=== PATIENT | female | born 1940 | race Caucasian/White ===

== ENCOUNTER → 2016-09-19 | Outpatient (CLI) | payer MEDICARE, BC ==
[~2016-09-19] MED LIST: ADVIL200 MG PO; ANTIBIOTIC O500 U/GM TP; BYSTOLIC5 MG PO; DUO-KAPS1 CAP PO; EPA FISH OIL1000 MG PO; LIPITOR20 MG PO; RECLAST5 MG/100 M IV; RITE AID ASPIRI81 M1 PO; SYNTHROID0.05 MG/TA PO; TUMORIC PO; VIT-GEN1 TAB PO; VITAMIN D 1001000 IU PO; VITAMIN E1000 U/CAP PO
== END ==
LOC: LAB 09:23
DX: I97.3 Postprocedural hypertension (principal); E78.2 Mixed hyperlipidemia; E03.4 Atrophy of thyroid (acquired)

== ENCOUNTER → 2017-04-19 | Outpatient (CLI) | payer MEDICARE, BC ==
[2015-03-05 10:11] VITALS: BP 136/72
== END ==
LOC: LAB 07:49
DX: I97.3 Postprocedural hypertension (principal); E78.2 Mixed hyperlipidemia; E03.4 Atrophy of thyroid (acquired); Z12.11 Encounter for screening for malignant neoplasm of colon; M80.08XS Age-related osteoporosis with current pathological fracture, vertebra(e), sequela

== ENCOUNTER → 2017-05-02 | Outpatient (CLI) | payer MEDICARE, BC ==
[2015-03-05 10:11] VITALS: BP 136/72
== END ==
LOC: LAB 09:07
DX: M80.08XS Age-related osteoporosis with current pathological fracture, vertebra(e), sequela (principal)

== ENCOUNTER → 2017-05-09 | Outpatient (CLI) | payer MEDICARE, BC ==
[2015-03-05 10:11] VITALS: BP 136/72
== END ==
LOC: RAD 11:01
DX: I65.29 Occlusion and stenosis of unspecified carotid artery (principal); I65.21 Occlusion and stenosis of right carotid artery

== ENCOUNTER → 2017-05-09 | Outpatient (CLI) | payer MEDICARE, BC ==
[2015-03-05 10:11] VITALS: BP 136/72
== END ==
LOC: MAMMO 10:38
DX: Z12.31 Encounter for screening mammogram for malignant neoplasm of breast (principal)
CPT/HCPCS: G0202

== ENCOUNTER → 2017-12-04 | Outpatient (CLI) | payer MEDICARE, BC ==
[2015-03-05 10:11] VITALS: BP 136/72
[2017-12-04 14:48] LABS: EOS # 0.1 (0.04-0.40); EOS % 3.1 % (1.0-5.0); HEMATOCRIT 36.7 % (37.0-47.0); LYMPH# 1.3 (1.50-4.00); MEAN CELL VOLUME 99 fl (78-100); MEAN CORPUSCULAR HEMOGLOBIN 32 pg (27-31); MEAN CORPUSCULAR HGB CONC 33 g/dL (33-37); MEAN PLATELET VOLUME 9.3 fl (7.4-10.4); MONO # 0.5 (0.20-0.80); NEU # 2.5 (1.40-6.50); PLATELET COUNT 282 K/mm3 (130-400); RED CELL DISTRIBUTION WIDTH 13.3 % (11.5-14.5); WHITE BLOOD COUNT 4.5 K/mm3 (4.8-10.8)
[2017-12-04 14:55] LABS: ALBUMIN 3.8 g/dL (3.5-5.0); BUN/CREATININE RATIO 19.4 (6.0-26.0); CALCIUM 9.8 mg/dL (8.4-10.2); POTASSIUM 4.2 mmol/L (3.6-5.0); TOTAL BILIRUBIN 0.2 mg/dL (0.2-1.3); TOTAL PROTEIN 7.2 g/dL (6.3-8.2)
== END ==
LOC: LAB 13:49
PROVIDERS: Internal Medicine
DX: E78.5 Hyperlipidemia, unspecified (principal); I10 Essential (primary) hypertension; E03.9 Hypothyroidism, unspecified; Z88.1 Allergy status to other antibiotic agents

== ENCOUNTER → 2018-05-22 | Outpatient (CLI) | payer MEDICARE, BC ==
[~2018-05-22] VITALS: Ht 154.9 cm; Wt 72.7 kg
[2018-05-22 14:20] VITALS: BP 145/75
[2018-05-22 14:22] LABS: HEMATOCRIT 36.8 % (37.0-47.0); HEMOGLOBIN 12.5 g/dL (12.5-16.0); MEAN CELL VOLUME 97 fl (78-100); MEAN CORPUSCULAR HEMOGLOBIN 33 pg (27-31); MEAN CORPUSCULAR HGB CONC 34 g/dL (33-37); MEAN PLATELET VOLUME 8.9 fl (7.4-10.4); PLATELET COUNT 230 K/mm3 (130-400); RED BLOOD COUNT 3.79 M/mm3 (4.10-5.30); RED CELL DISTRIBUTION WIDTH 13.6 % (11.5-14.5); WHITE BLOOD COUNT 3.9 K/mm3 (4.8-10.8)
[2018-05-22 14:35] LABS: CALCIUM 9.8 mg/dL (8.4-10.2); TOTAL BILIRUBIN 0.8 mg/dL (0.2-1.3)
[2018-05-22 16:00] LABS: ERYTHROCYTE SEDIMENTATION RATE 11 mm/hr (0-30); LYMPHOCYTE 43 % (20-51); MONOCYTE 7 % (3-10); NEUTROPHILS 45 % (42-75)
== END ==
LOC: AMSURD 13:48 → RAD 15:15 → AMSURD 15:15 → MAMMO 15:15
PROVIDERS: Internal Medicine
DX: Z13.820 Encounter for screening for osteoporosis (principal); M85.88 Other specified disorders of bone density and structure, other site; I65.23 Occlusion and stenosis of bilateral carotid arteries; I49.3 Ventricular premature depolarization; I10 Essential (primary) hypertension; R20.2 Paresthesia of skin; M81.0 Age-related osteoporosis without current pathological fracture; E03.9 Hypothyroidism, unspecified

== ENCOUNTER → 2018-05-22 | Outpatient (CLI) | payer MEDICARE, BC ==
[2015-03-05 10:11] VITALS: BP 136/72
== END ==
LOC: MAMMO 13:53
DX: Z12.31 Encounter for screening mammogram for malignant neoplasm of breast (principal)

== ENCOUNTER → 2018-12-28 | Outpatient (CLI) | payer MEDICARE, BC ==
[2018-05-22 14:20] VITALS: BP 145/75
== END ==
LOC: LAB 07:04
DX: E03.9 Hypothyroidism, unspecified (principal)

== ENCOUNTER → 2019-05-23 | Outpatient (CLI) | payer MEDICARE, BC ==
[2018-05-22 14:20] VITALS: BP 145/75
== END ==
LOC: MAMMO 07:40
DX: Z12.31 Encounter for screening mammogram for malignant neoplasm of breast (principal)

== ENCOUNTER → 2019-05-23 | Outpatient (CLI) | payer MEDICARE, BC ==
[~2019-05-23] VITALS: Ht 154.9 cm; Wt 72.7 kg
[2019-05-23 08:21] LABS: HEMATOCRIT 38.3 % (37.0-47.0); HEMOGLOBIN 12.5 g/dL (12.5-16.0); MEAN CELL VOLUME 100 fl (78-100); MEAN CORPUSCULAR HEMOGLOBIN 33 pg (27-31); MEAN CORPUSCULAR HGB CONC 33 g/dL (33-37); MEAN PLATELET VOLUME 9.5 fl (7.4-10.4); PLATELET COUNT 227 K/mm3 (130-400); RED BLOOD COUNT 3.85 M/mm3 (4.10-5.30); RED CELL DISTRIBUTION WIDTH 13.6 % (11.5-14.5); WHITE BLOOD COUNT 3.5 K/mm3 (4.8-10.8)
[2019-05-23 08:29] LABS: ALBUMIN 3.7 g/dL (3.4-4.8)
[2019-05-23 08:30] LABS: CALCIUM 9.8 mg/dL (8.3-10.5)
[2019-05-23 08:31] LABS: TOTAL PROTEIN 6.6 g/dL (6.2-8.1)
[2019-05-23 08:33] LABS: TOTAL BILIRUBIN 0.4 mg/dL (0.2-1.2)
[2019-05-23 08:38] LABS: LYMPHOCYTE 37 % (20-51); MONOCYTE 15 % (3-10); NEUTROPHILS 46 % (42-75)
[2019-05-23 08:51] LABS: PH-URINE 6.5 (5.0 - 8.0); URINE APPEARANCE CLEAR; URINE BILIRUBIN NEGATIVE (NEGATIVE); URINE BLOOD NEGATIVE (NEGATIVE); URINE COLOR YELLOW; URINE GLUCOSE NEGATIVE (NEGATIVE); URINE KETONE SMALL (NEGATIVE); URINE LEUKOCYTE ESTERASE 2+ (NEGATIVE); URINE MUCUS PRESENT (NOT PRESENT); URINE NITRATE NEGATIVE (NEGATIVE); URINE PROTEIN(semi-quant) 1+ mg/dL (NEGATIVE); URINE UROBILINOGEN NORMAL (NORMAL)
[2019-05-23 09:00] VITALS: BP 159/72
[2019-05-23 09:34] LABS: ERYTHROCYTE SEDIMENTATION RATE 11 mm/hr (0-30)
== END ==
LOC: RAD 07:40
PROVIDERS: Internal Medicine
DX: I65.21 Occlusion and stenosis of right carotid artery (principal); I49.3 Ventricular premature depolarization

== ENCOUNTER → 2019-10-14 | Outpatient (CLI) | payer MEDICARE, BC ==
[2019-05-23 09:00] VITALS: BP 159/72
== END ==
LOC: RAD 14:37
DX: I65.21 Occlusion and stenosis of right carotid artery (principal)

== ENCOUNTER → 2019-10-31 | Outpatient (CLI) | payer MEDICARE, BC ==
[2019-05-23 09:00] VITALS: BP 159/72
== END ==
LOC: LAB 14:23
DX: L03.115 Cellulitis of right lower limb (principal)

== ENCOUNTER → 2019-12-27 | Outpatient (CLI) | payer MEDICARE, BC ==
[2019-05-23 09:00] VITALS: BP 159/72
== END ==
LOC: RAD 11:41
DX: M48.54XA Collapsed vertebra, not elsewhere classified, thoracic region, initial encounter for fracture (principal); M48.56XA Collapsed vertebra, not elsewhere classified, lumbar region, initial encounter for fracture; M47.814 Spondylosis without myelopathy or radiculopathy, thoracic region; M47.816 Spondylosis without myelopathy or radiculopathy, lumbar region; M43.8X4 Other specified deforming dorsopathies, thoracic region; M81.0 Age-related osteoporosis without current pathological fracture; Z98.890 Other specified postprocedural states

== ENCOUNTER → 2020-05-28 | Outpatient (CLI) | payer MEDICARE, BC ==
[2019-05-23 09:00] VITALS: BP 159/72
[2020-05-28 09:33] LABS: HEMATOCRIT 38.6 % (37.0-47.0); HEMOGLOBIN 12.7 g/dL (12.5-16.0); MEAN CELL VOLUME 98 fl (78-100); MEAN CORPUSCULAR HEMOGLOBIN 32 pg (27-31); MEAN CORPUSCULAR HGB CONC 33 g/dL (33-37); MEAN PLATELET VOLUME 9.1 fl (7.4-10.4); PLATELET COUNT 195 K/mm3 (130-400); RED BLOOD COUNT 3.95 M/mm3 (4.10-5.30); RED CELL DISTRIBUTION WIDTH 13.7 % (11.5-14.5); WHITE BLOOD COUNT 3.2 K/mm3 (4.8-10.8)
[2020-05-28 09:37] LABS: ALBUMIN 3.9 g/dL (3.4-4.8); POTASSIUM 3.9 mmol/L (3.5-5.1)
[2020-05-28 09:38] LABS: CALCIUM 9.5 mg/dL (8.3-10.5)
[2020-05-28 09:41] LABS: TOTAL BILIRUBIN 0.6 mg/dL (0.2-1.2)
[2020-05-28 10:10] LABS: PH-URINE 6.5 (5.0 - 8.0); URINE APPEARANCE HAZY; URINE BILIRUBIN NEGATIVE (NEGATIVE); URINE BLOOD NEGATIVE (NEGATIVE); URINE COLOR YELLOW; URINE GLUCOSE NEGATIVE (NEGATIVE); URINE KETONE NEGATIVE (NEGATIVE); URINE LEUKOCYTE ESTERASE TRACE (NEGATIVE); URINE NITRATE NEGATIVE (NEGATIVE); URINE PROTEIN(semi-quant) 1+ mg/dL (NEGATIVE); URINE UROBILINOGEN NORMAL (NORMAL)
[2020-05-28 10:14] LABS: LYMPHOCYTE 33 % (20-51); MONOCYTE 10 % (3-10); NEUTROPHILS 49 % (42-75)
[2020-05-28 11:06] LABS: ERYTHROCYTE SEDIMENTATION RATE 13 mm/hr (0-30)
== END ==
LOC: LAB 09:11 → RAD 09:11
PROVIDERS: Internal Medicine
DX: Z13.820 Encounter for screening for osteoporosis (principal); M85.852 Other specified disorders of bone density and structure, left thigh; I97.3 Postprocedural hypertension; I65.29 Occlusion and stenosis of unspecified carotid artery; E03.9 Hypothyroidism, unspecified; M80.08XS Age-related osteoporosis with current pathological fracture, vertebra(e), sequela; R20.2 Paresthesia of skin

== ENCOUNTER → 2020-05-28 | Outpatient (CLI) | payer MEDICARE, BC ==
[2019-05-23 09:00] VITALS: BP 159/72
== END ==
LOC: MAMMO 05-26 11:30
DX: Z12.31 Encounter for screening mammogram for malignant neoplasm of breast (principal)

== ENCOUNTER 2020-08-28 09:04 | Outpatient (RCR) | payer MEDICARE, BC ==
[2019-05-23 09:00] VITALS: BP 159/72
== END 2020-11-26 | disposition home or self-care (01) ==
LOC: PT
DX: M76.32 Iliotibial band syndrome, left leg (principal)

== ENCOUNTER 2021-04-19 17:04 | Emergency (ER) | payer MEDICARE, BC ==
[2021-04-19 17:32] LABS: BASO # 0.03 (0.02-0.10); EOS # 0.13 (0.04-0.40); EOS % 3.3 % (1.0-5.0); HEMATOCRIT 38.2 % (37.0-47.0); HEMOGLOBIN 12.6 g/dL (12.5-16.0); LYMPH# 1.19 (1.50-4.00); MEAN CELL VOLUME 99 fl (78-100); MEAN CORPUSCULAR HEMOGLOBIN 33 pg (27-31); MEAN CORPUSCULAR HGB CONC 33 g/dL (33-37); MEAN PLATELET VOLUME 8.8 fl (7.4-10.4); MONO # 0.63 (0.20-0.80); NEU # 1.93 (1.40-6.50); PLATELET COUNT 232 K/mm3 (130-400); RED BLOOD COUNT 3.85 M/mm3 (4.10-5.30); RED CELL DISTRIBUTION WIDTH 13.7 % (11.5-14.5); WHITE BLOOD COUNT 3.9 K/mm3 (4.8-10.8)
[2021-04-19 17:45] LABS: ALBUMIN 3.8 g/dL (3.4-4.8)
[2021-04-19 17:46] LABS: POTASSIUM 4.1 mmol/L (3.5-5.1)
[2021-04-19 17:47] LABS: CALCIUM 10.4 mg/dL (8.3-10.5)
[2021-04-19 17:50] LABS: TOTAL BILIRUBIN 0.4 mg/dL (0.2-1.2)
[2021-04-19 18:01] LABS: TROPONIN-I 0.03 ng/mL (<0.030)
[2021-04-19 19:07] LABS: PH-URINE 7.5 (5.0 - 8.0); URINE APPEARANCE CLEAR; URINE BILIRUBIN NEGATIVE (NEGATIVE); URINE BLOOD NEGATIVE (NEGATIVE); URINE COLOR YELLOW; URINE GLUCOSE NEGATIVE (NEGATIVE); URINE KETONE NEGATIVE (NEGATIVE); URINE LEUKOCYTE ESTERASE TRACE (NEGATIVE); URINE NITRATE NEGATIVE (NEGATIVE); URINE PROTEIN(semi-quant) TRACE mg/dL (NEGATIVE); URINE UROBILINOGEN NORMAL (NORMAL)
[2021-04-19 19:20] VITALS: BP 176/87
== END 2021-04-19 19:30 | disposition home or self-care (01) ==
LOC: ED 17:04
PROVIDERS: Nurse Practitioner
DX: R53.81 Other malaise (principal); R53.83 Other fatigue; I10 Essential (primary) hypertension; E66.9 Obesity, unspecified; Z20.822 Contact with and (suspected) exposure to COVID-19

== ENCOUNTER → 2021-04-23 | Outpatient (CLI) | payer MEDICARE, BC ==
[2021-04-23 08:34] LABS: BASO # 0.03 (0.02-0.10); EOS # 0.26 (0.04-0.40); LYMPH# 1.25 (1.50-4.00); MEAN CELL VOLUME 100 fl (78-100); MEAN CORPUSCULAR HEMOGLOBIN 32 pg (27-31); MEAN CORPUSCULAR HGB CONC 32 g/dL (33-37); MEAN PLATELET VOLUME 8.8 fl (7.4-10.4); MONO # 0.71 (0.20-0.80); NEU # 2.11 (1.40-6.50); PLATELET COUNT 237 K/mm3 (130-400); RED BLOOD COUNT 3.71 M/mm3 (4.10-5.30); RED CELL DISTRIBUTION WIDTH 13.8 % (11.5-14.5); WHITE BLOOD COUNT 4.4 K/mm3 (4.8-10.8)
[2021-04-23 08:53] LABS: ALBUMIN 3.6 g/dL (3.4-4.8); POTASSIUM 3.9 mmol/L (3.5-5.1)
[2021-04-23 08:54] LABS: CALCIUM 10.1 mg/dL (8.3-10.5)
[2021-04-23 08:56] LABS: TOTAL PROTEIN 6.6 g/dL (6.2-8.1)
[2021-04-23 08:57] LABS: TOTAL BILIRUBIN 0.5 mg/dL (0.2-1.2)
[2021-04-23 10:31] LABS: D-DIMER 0.92 mg/L FEU (0.15-0.50)
[2021-04-23 10:32] LABS: ERYTHROCYTE SEDIMENTATION RATE 17 mm/hr (0-30)
== END ==
LOC: LAB 08:06
PROVIDERS: Internal Medicine
DX: R06.00 Dyspnea, unspecified (principal); R53.83 Other fatigue

== ENCOUNTER → 2021-04-23 | Outpatient (CLI) | payer MEDICARE, BC | LOC: RAD 15:20 | DX: M43.9 Deforming dorsopathy, unspecified (principal) | CPT/HCPCS: Q9967 ==

== ENCOUNTER → 2021-05-06 | Outpatient (CLI) | payer MEDICARE, BC | LOC: VAS 14:48 → RAD 15:00 | DX: R06.00 Dyspnea, unspecified (principal) ==

== ENCOUNTER → 2021-05-07 | Outpatient (CLI) | payer MEDICARE, BC | LOC: CARDREHAB 10:53 | DX: R06.00 Dyspnea, unspecified (principal) | CPT/HCPCS: A9500 ==

== ENCOUNTER → 2021-06-09 | Outpatient (CLI) | payer MEDICARE, BC | LOC: MAMMO 15:04 | DX: Z12.31 Encounter for screening mammogram for malignant neoplasm of breast (principal) ==

== ENCOUNTER → 2021-12-23 | Outpatient (CLI) | payer MEDICARE, BC ==
[2021-12-23 14:46] LABS: BASO # 0.04 K/mm3 (0.02-0.10); EOS # 0.08 K/mm3 (0.04-0.40); EOS % 1.8 % (1.0-5.0); HEMATOCRIT 36.3 % (37.0-47.0); HEMOGLOBIN 11.6 g/dL (12.5-16.0); LYMPH# 1.27 K/mm3 (1.50-4.00); MEAN CELL VOLUME 101 fl (78-100); MEAN CORPUSCULAR HEMOGLOBIN 32 pg (27-31); MEAN CORPUSCULAR HGB CONC 32 g/dL (33-37); MEAN PLATELET VOLUME 8.6 fl (7.4-10.4); MONO # 0.55 K/mm3 (0.20-0.80); NEU # 2.46 K/mm3 (1.40-6.50); PLATELET COUNT 245 K/mm3 (130-400); RED BLOOD COUNT 3.61 M/mm3 (4.10-5.30); RED CELL DISTRIBUTION WIDTH 13.8 % (11.5-14.5); WHITE BLOOD COUNT 4.4 K/mm3 (4.8-10.8)
[2021-12-23 15:00] LABS: ALBUMIN 3.9 g/dL (3.4-4.8); POTASSIUM 4.5 mmol/L (3.5-5.1)
[2021-12-23 15:01] LABS: CALCIUM 10.4 mg/dL (8.3-10.5)
[2021-12-23 15:02] LABS: TOTAL PROTEIN 6.8 g/dL (6.2-8.1)
[2021-12-23 15:04] LABS: TOTAL BILIRUBIN 0.3 mg/dL (0.2-1.2)
[2021-12-23 15:09] LABS: MAGNESIUM 1.74 mg/dL (1.60-2.60)
== END ==
LOC: LAB 14:32
PROVIDERS: Internal Medicine
DX: E03.4 Atrophy of thyroid (acquired) (principal); K90.9 Intestinal malabsorption, unspecified; I10 Essential (primary) hypertension; E78.2 Mixed hyperlipidemia; M81.0 Age-related osteoporosis without current pathological fracture

== ENCOUNTER → 2022-02-01 | Outpatient (CLI) | payer MEDICARE, BC | LOC: LAB 15:37 | DX: K44.9 Diaphragmatic hernia without obstruction or gangrene (principal); M48.55XA Collapsed vertebra, not elsewhere classified, thoracolumbar region, initial encounter for fracture; E03.4 Atrophy of thyroid (acquired); I10 Essential (primary) hypertension; E78.2 Mixed hyperlipidemia; M81.0 Age-related osteoporosis without current pathological fracture; K90.9 Intestinal malabsorption, unspecified ==

== ENCOUNTER → 2022-02-09 | Outpatient (CLI) | payer MEDICARE, BC ==
[~2022-02-09] MED LIST changes: +ADVAIR DISKUS1 DS2 IH; +FUROSEMIDE20 MG PO; +LEVOCETIRIZINE D5 MG PO; +LEVOTHYROXINE0.05 MG PO; +LOSARTAN POTASS50 M1 PO; +SINGULAIR 110 MG/TAB PO
[2022-02-09 14:40] LABS: POTASSIUM 4.5 mmol/L (3.5-5.1)
[2022-02-09 14:42] LABS: TOTAL PROTEIN 6.9 g/dL (6.2-8.1)
[2022-02-09 14:44] LABS: TOTAL BILIRUBIN 0.5 mg/dL (0.2-1.2)
[2022-02-09 14:49] LABS: MAGNESIUM 1.91 mg/dL (1.60-2.60)
== END ==
LOC: RAD 14:09 → LAB 14:09
PROVIDERS: Internal Medicine
DX: M48.55XA Collapsed vertebra, not elsewhere classified, thoracolumbar region, initial encounter for fracture (principal); R06.00 Dyspnea, unspecified

== ENCOUNTER 2022-02-14 13:24 | Emergency (ER) | payer MEDICARE, BC ==
[~2022-02-14] VITALS: Ht 152.4 cm; Wt 72.7 kg
[~2022-02-14 13:24] MED LIST changes: -ADVAIR DISKUS1 DS2 IH; -FUROSEMIDE20 MG PO; -LEVOCETIRIZINE D5 MG PO; -LEVOTHYROXINE0.05 MG PO; -LOSARTAN POTASS50 M1 PO; -SINGULAIR 110 MG/TAB PO
[2022-02-14] MEDS ORDERED: ADVAIR DISKUS1 DS2 IH (14:23)
[2022-02-14] MEDS ORDERED: LEVOCETIRIZINE D5 MG PO (14:23)
[2022-02-14] MEDS ORDERED: SINGULAIR 110 MG/TAB PO (14:23)
[2022-02-14] MEDS ORDERED: FUROSEMIDE20 MG PO (14:24)
[2022-02-14] MEDS ORDERED: LOSARTAN POTASS50 M1 PO (14:24)
[2022-02-14] MEDS ORDERED: LEVOTHYROXINE0.05 MG PO (14:24)
[2022-02-14 15:20] VITALS: BP 122/70
== END 2022-02-14 15:20 | disposition home or self-care (01) ==
LOC: ED 13:24
DX: S51.811A Laceration without foreign body of right forearm, initial encounter (principal); M25.531 Pain in right wrist; Z23 Encounter for immunization; W23.1XXA Caught, crushed, jammed, or pinched between stationary objects, initial encounter; Y93.01 Activity, walking, marching and hiking; Y92.009 Unspecified place in unspecified non-institutional (private) residence as the place of occurrence of the external cause
CPT/HCPCS: 90715

== ENCOUNTER → 2022-03-03 | Outpatient (CLI) | payer MEDICARE, BC ==
[~2022-03-03] MED LIST changes: +ADVAIR DISKUS1 DS2 IH; +FUROSEMIDE20 MG PO; +LEVOCETIRIZINE D5 MG PO; +LEVOTHYROXINE0.05 MG PO; +LOSARTAN POTASS50 M1 PO; +SINGULAIR 110 MG/TAB PO
== END ==
LOC: RAD 08:27
DX: S52.601A Unspecified fracture of lower end of right ulna, initial encounter for closed fracture (principal)

== ENCOUNTER → 2022-03-15 | Outpatient (CLI) | payer MEDICARE, BC ==
[~2022-03-15] VITALS: Ht 152.4 cm; Wt 68.2 kg
[2022-03-15 10:09] VITALS: BP 182/86
== END ==
LOC: AMSURD 09:57
DX: M80.08XA Age-related osteoporosis with current pathological fracture, vertebra(e), initial encounter for fracture (principal)
CPT/HCPCS: J0897

== ENCOUNTER 2022-03-16 14:00 | Outpatient (RCR) | payer MEDICARE, BC | END 2022-03-20 | LOC: PT 14:00 | DX: M62.81 Muscle weakness (generalized) (principal) ==

== ENCOUNTER 2022-03-24 11:47 | Outpatient (RCR) | payer MEDICARE, BC | END 2022-04-20 | disposition home or self-care (01) | LOC: PT | DX: M62.81 Muscle weakness (generalized) (principal) ==

== ENCOUNTER → 2022-03-28 | Outpatient (CLI) | payer MEDICARE, BC | LOC: RAD 08:07 | DX: S52.601D Unspecified fracture of lower end of right ulna, subsequent encounter for closed fracture with routine healing (principal); X58.XXXD Exposure to other specified factors, subsequent encounter ==

== ENCOUNTER 2022-04-27 09:00 | Outpatient (RCR) | payer MEDICARE, BC | END 2022-05-17 14:25 | disposition home or self-care (01) | LOC: PT 09:00 | DX: M62.81 Muscle weakness (generalized) (principal) ==

== ENCOUNTER → 2022-07-26 | Outpatient (CLI) | payer MEDICARE, BC ==
[2022-07-26 16:18] LABS: POTASSIUM 4.3 mmol/L (3.5-5.1)
[2022-07-26 16:20] LABS: CALCIUM 10.6 mg/dL (8.3-10.5)
[2022-07-26 16:26] LABS: MAGNESIUM 1.45 mg/dL (1.60-2.60)
== END ==
LOC: LAB 15:48
PROVIDERS: Internal Medicine
DX: U07.1 COVID-19 (principal); K44.9 Diaphragmatic hernia without obstruction or gangrene; M80.08XA Age-related osteoporosis with current pathological fracture, vertebra(e), initial encounter for fracture; E83.42 Hypomagnesemia

== ENCOUNTER → 2022-09-16 | Outpatient (CLI) | payer MEDICARE, BC ==
[~2022-09-16] VITALS: Ht 152.4 cm; Wt 68.2 kg
[2022-09-16 13:15] VITALS: BP 134/76
== END ==
LOC: AMSURD 07:43
DX: M80.08XA Age-related osteoporosis with current pathological fracture, vertebra(e), initial encounter for fracture (principal)
CPT/HCPCS: J0897

== ENCOUNTER → 2022-11-24 | Outpatient (CLI) | payer MEDICARE, BC ==
[2022-11-24 12:03] LABS: POTASSIUM 4.8 mmol/L (3.5-5.1)
[2022-11-24 12:04] LABS: CALCIUM 9.6 mg/dL (8.3-10.5)
[2022-11-24 12:06] LABS: TOTAL PROTEIN 6.9 g/dL (6.2-8.1)
[2022-11-24 12:07] LABS: TOTAL BILIRUBIN 0.2 mg/dL (0.2-1.2)
[2022-11-24 12:12] LABS: MAGNESIUM 1.72 mg/dL (1.60-2.60)
== END ==
LOC: LAB 11:43
PROVIDERS: Internal Medicine
DX: U07.1 COVID-19 (principal); M80.08XA Age-related osteoporosis with current pathological fracture, vertebra(e), initial encounter for fracture; K44.9 Diaphragmatic hernia without obstruction or gangrene; E03.4 Atrophy of thyroid (acquired); I10 Essential (primary) hypertension; E83.42 Hypomagnesemia

== ENCOUNTER 2023-03-21 16:22 | Outpatient (RCR) | payer MEDICARE, BC ==
[~2023-03-21 16:22] MED LIST changes: +ASPERCREME1 EACH TP; +OMEGA 3 1,0001 EACH PO; +OMEPRAZOLE40 MG PO; +PHARMASSURE ZIN50 MG PO; +PROBIOTIC1 EAC2 PO; +SLOWMAG85 MG PO; +TRELEGY ELLIPT1 EAC1 IH; +VITAMIN C500 M7 PO
[2023-03-22] MEDS ORDERED: FLUOROMETHOLONE5 M1 OP (09:14)
== END 2023-04-20 | disposition home or self-care (01) ==
LOC: PT
DX: M62.81 Muscle weakness (generalized) (principal); R26.89 Other abnormalities of gait and mobility

== ENCOUNTER → 2023-06-01 | Outpatient (CLI) | payer MEDICARE, BC ==
[~2023-06-01] MED LIST changes: +FLUOROMETHOLONE5 M1 OP
[2023-06-01 12:04] LABS: BASO # 0.03 K/mm3 (0.02-0.10); EOS # 0.13 K/mm3 (0.04-0.40); HEMATOCRIT 33.4 % (37.0-47.0); LYMPH# 1.26 K/mm3 (1.50-4.00); MEAN CELL VOLUME 93 fl (78-100); MEAN CORPUSCULAR HEMOGLOBIN 31 pg (27-31); MEAN CORPUSCULAR HGB CONC 33 g/dL (33-37); MEAN PLATELET VOLUME 8.1 fl (7.4-10.4); MONO # 0.55 K/mm3 (0.20-0.80); NEU # 2.29 K/mm3 (1.40-6.50); PLATELET COUNT 291 K/mm3 (130-400); RED CELL DISTRIBUTION WIDTH 13.8 % (11.5-14.5); WHITE BLOOD COUNT 4.3 K/mm3 (4.8-10.8)
[2023-06-01 14:02] LABS: ALBUMIN 3.9 g/dL (3.4-4.8); POTASSIUM 4.6 mmol/L (3.5-5.1)
[2023-06-01 14:03] LABS: CALCIUM 9.9 mg/dL (8.3-10.5)
[2023-06-01 14:06] LABS: TOTAL BILIRUBIN 0.4 mg/dL (0.2-1.2)
[2023-06-01 14:11] LABS: MAGNESIUM 1.81 mg/dL (1.60-2.60)
[2023-06-01 14:32] LABS: ERYTHROCYTE SEDIMENTATION RATE 55 mm/hr (0-30)
== END ==
LOC: LAB 11:32
PROVIDERS: Internal Medicine
DX: Z12.39 Encounter for other screening for malignant neoplasm of breast (principal); K44.9 Diaphragmatic hernia without obstruction or gangrene; M80.08XA Age-related osteoporosis with current pathological fracture, vertebra(e), initial encounter for fracture; I10 Essential (primary) hypertension; E83.42 Hypomagnesemia; E03.4 Atrophy of thyroid (acquired); M62.81 Muscle weakness (generalized); H80.93 Unspecified otosclerosis, bilateral; E78.2 Mixed hyperlipidemia

== ENCOUNTER → 2023-10-16 | Outpatient (CLI) | payer MEDICARE, BC ==
[2023-10-16 12:18] LABS: BASO # 0.03 K/mm3 (0.02-0.10); EOS # 0.12 K/mm3 (0.04-0.40); EOS % 2.4 % (1.0-5.0); HEMATOCRIT 34.4 % (37.0-47.0); HEMOGLOBIN 11.3 g/dL (12.5-16.0); LYMPH# 1.37 K/mm3 (1.50-4.00); MEAN CELL VOLUME 94 fl (78-100); MEAN CORPUSCULAR HEMOGLOBIN 31 pg (27-31); MEAN CORPUSCULAR HGB CONC 33 g/dL (33-37); MEAN PLATELET VOLUME 8.4 fl (7.4-10.4); NEU # 2.82 K/mm3 (1.40-6.50); PLATELET COUNT 272 K/mm3 (130-400); RED BLOOD COUNT 3.67 M/mm3 (4.10-5.30); RED CELL DISTRIBUTION WIDTH 13.7 % (11.5-14.5)
[2023-10-16 12:33] LABS: CALCIUM 9.9 mg/dL (8.3-10.5)
[2023-10-16 12:34] LABS: TOTAL PROTEIN 7.2 g/dL (6.2-8.1)
[2023-10-16 12:36] LABS: TOTAL BILIRUBIN 0.3 mg/dL (0.2-1.2)
== END ==
LOC: LAB 11:59
PROVIDERS: Nurse Practitioner Family
DX: M79.602 Pain in left arm (principal)

== ENCOUNTER → 2024-01-01 | Outpatient (CLI) | payer MEDICARE, BC ==
[2024-01-01 12:15] LABS: BASO # 0.03 K/mm3 (0.02-0.10); EOS # 0.06 K/mm3 (0.04-0.40); EOS % 1.4 % (1.0-5.0); HEMATOCRIT 34.9 % (37.0-47.0); HEMOGLOBIN 11.7 g/dL (12.5-16.0); LYMPH# 1.51 K/mm3 (1.50-4.00); MEAN CELL VOLUME 94 fl (78-100); MEAN CORPUSCULAR HEMOGLOBIN 31 pg (27-31); MEAN CORPUSCULAR HGB CONC 34 g/dL (33-37); MEAN PLATELET VOLUME 8.1 fl (7.4-10.4); MONO # 0.55 K/mm3 (0.20-0.80); NEU # 2.16 K/mm3 (1.40-6.50); PLATELET COUNT 321 K/mm3 (130-400); RED BLOOD COUNT 3.73 M/mm3 (4.10-5.30); RED CELL DISTRIBUTION WIDTH 13.7 % (11.5-14.5); WHITE BLOOD COUNT 4.3 K/mm3 (4.8-10.8)
[2024-01-01 12:30] LABS: ALBUMIN 4.1 g/dL (3.4-4.8)
[2024-01-01 12:31] LABS: CALCIUM 10.4 mg/dL (8.3-10.5)
[2024-01-01 12:32] LABS: TOTAL PROTEIN 7.1 g/dL (6.2-8.1)
[2024-01-01 12:34] LABS: TOTAL BILIRUBIN 0.4 mg/dL (0.2-1.2)
[2024-01-01 12:39] LABS: MAGNESIUM 1.78 mg/dL (1.60-2.60)
== END ==
LOC: LAB 12:03
PROVIDERS: Internal Medicine
DX: E03.4 Atrophy of thyroid (acquired) (principal); M81.0 Age-related osteoporosis without current pathological fracture; E78.2 Mixed hyperlipidemia; I10 Essential (primary) hypertension; K90.9 Intestinal malabsorption, unspecified

== ENCOUNTER → 2024-02-09 | Outpatient (CLI) | payer MEDICARE, BC ==
[~2024-02-09] MED LIST changes: +ASPERFLEX LIDOC15 GM TP
== END ==
LOC: RAD 09:42
DX: I65.21 Occlusion and stenosis of right carotid artery (principal)

== ENCOUNTER 2024-02-15 09:46 | Outpatient (RCR) | payer MEDICARE, BC ==
--- NOTE | 2024-01-30 10:00 | NUR ---
Dressing change to posterior calf ulcer on Left lower leg. Still about 95% yellow slough in wound bed. Periwound pink. Cleaned with surgical scrub and sterile water using debrislolly. Rinsed and dried well. Covered wound bed with Promogran Sravani and Telfa. Skin prep to mariya-wound. Secured dressing with paper tape. Wound measured 1.4cm x 0.8cm today.
[2024-01-30 10:08] VITALS: BP 174/92
--- NOTE | 2024-02-02 09:16 | NUR ---
PT ARRIVES AMBULATORY TO ROOM 4 FOR WOUND CARE TO LEFT CALF WOUND.
--- NOTE | 2024-02-02 10:42 | NUR ---
Patient previous dressing removed to left posterior distal popliteal surface. Scant amount trevizo/yellow drainage noted. Measured wound at 1.3cm x 0.9cm. 90% slough in wound bed. Periwound pink. Gentle debridement per Yumiko Sofia APRN, to remove 50% slough. Cleansed with surgical scrub and debrisoft lolly. Irrigated with sterile water. Dressed with Promogran Sravani collagen, aquacel extra, and telfa. Secured with paper tape on all 4 sides. Periskin prepped with skin prep. Patient billy well. Will return on Monday and next week.
--- NOTE | 2024-02-05 10:15 | NUR ---
Patient ambulated to room 5 for OP wound care. Previous dressing removed. Minimal Yellow/trevizo drainage noted on dressing. Cleansed with surgical scrub and debrisoft lolly. Irrigated with sterile saline and dried with 4x4's. Wound measures 1.3cm x 0.9cm. 20% granulation tissue in distal/inferior wound bed. Autumn wound pink and no maceration. Prepped periskin with skin prep and placed promogran ofe collagen in wound bed. Covered with aquacel extra and telfa. Secured with paper tape on all 4 sides. Pt to return on . Verbalized understanding.
[2024-02-08 14:45] VITALS: BP 174/93
--- NOTE | 2024-02-12 10:38 | NUR ---
PT ARRIVED AMBULATORY FOR OP DRESSING CHANGE TO LEFT POSTERIOR CALF WOUND. REMOVED PREVIOUS DRESSING . DIME SIZED AMOUNT OF DARK BROWN DRAINAGE NOTED. NO ODOR. CLEANSED WOUND WITH SURGICAL SCRUB AND DEBRISOFT LOLLY. IRRIGATED WITH STERILE WATER AND DRIED WITH A 4X4 GAUZE PAD. WOUND BED IS ABOUT 90% COVERED IN YELLOW SLOUGH. 10% PINK WOUND BED. COVERED WOUND BED WITH PROMOGRAN KATIE COLLAGEN, AQUACEL EXTRA AND A FOLDED 2X2 GAUZE PAD. SKIN PREP APPLIED TO PERIWOUND AREA, AND DRESSING WAS SECURED WITH PAPER TAPE. PT DENIES PAIN. LEFT HOSPITAL AMBULATORY.
[~2024-02-15] VITALS: Ht 152.4 cm; Wt 68.2 kg
[~2024-02-15 09:46] MED LIST changes: -ASPERFLEX LIDOC15 GM TP
[2024-02-15 10:02] VITALS: BP 165/96
--- NOTE | 2024-02-15 10:20 | NUR ---
Pt ambulated to room 5 for outpatient wound care. Prior dressing removed, slough noted to dressing and scant amount of yellow exudate. Debriedement of wound tolerated well with patient. Periwound pink and skin tissue is firm, no warmth or erythema. Wound bed originally 95% slough, after debriedment 60% slough with some signs of pink epithelialization. 25% open borders. Wound to left posterior distal popliteal fossa measures 1.3 cm x 0.8 cm. Cleansed with debri lolli and surgical scrub, rinsed with sterile saline and dried with 4x4's. Periwound skin prep applied. Placed ofe collagen in wound bed and covered with telfa and paper tape. Pt to return in 1 week for next appointment. Debriedement by Yumiko Sofia APRN. VSS captured, pt ambulated out by staff.
[2024-02-21] MEDS ORDERED: ASPERFLEX LIDOC15 GM TP (12:36)
== END 2024-02-18 ==
LOC: AMSURD
DX: L97.929 Non-pressure chronic ulcer of unspecified part of left lower leg with unspecified severity (principal)

== ENCOUNTER → 2024-04-03 | Outpatient (CLI) | payer MEDICARE, BC ==
[~2024-04-03] VITALS: Ht 152.4 cm; Wt 68.2 kg
[~2024-04-03] MED LIST changes: +ASPERFLEX LIDOC15 GM TP; +Denosumab 60 MG/ML SYRINGE SQ SCH
[2024-04-03 11:04] VITALS: BP 198/100
== END ==
LOC: AMSURD 03-26 08:00
DX: M80.08XA Age-related osteoporosis with current pathological fracture, vertebra(e), initial encounter for fracture (principal)
CPT/HCPCS: J0897

== ENCOUNTER 2024-04-30 11:21 | Emergency (ER) | payer MEDICARE, BC ==
[~2024-04-30] VITALS: Ht 152.4 cm; Wt 72.3 kg
[~2024-04-30 11:21] MED LIST changes: -Denosumab 60 MG/ML SYRINGE SQ SCH
[2024-04-30] MEDS ORDERED: OMEPRAZOLE40 MG PO (11:53)
[2024-04-30] MEDS ORDERED: SLOWMAG85 MG PO (11:54)
[2024-04-30 12:04] LABS: BASO # 0.02 K/mm3 (0.02-0.10); EOS # 0.09 K/mm3 (0.04-0.40); EOS % 1.8 % (1.0-5.0); HEMATOCRIT 35.7 % (37.0-47.0); HEMOGLOBIN 12.2 g/dL (12.5-16.0); LYMPH# 1.35 K/mm3 (1.50-4.00); MEAN CELL VOLUME 94 fl (78-100); MEAN CORPUSCULAR HEMOGLOBIN 32 pg (27-31); MEAN CORPUSCULAR HGB CONC 34 g/dL (33-37); MEAN PLATELET VOLUME 8.7 fl (7.4-10.4); MONO # 0.54 K/mm3 (0.20-0.80); NEU # 2.89 K/mm3 (1.40-6.50); PLATELET COUNT 303 K/mm3 (130-400); RED BLOOD COUNT 3.82 M/mm3 (4.10-5.30); RED CELL DISTRIBUTION WIDTH 13.3 % (11.5-14.5); WHITE BLOOD COUNT 4.9 K/mm3 (4.8-10.8)
[2024-04-30 12:08] LABS: ALBUMIN 4.2 g/dL (3.4-4.8); SODIUM 132 mmol/L (136-145)
[2024-04-30 12:09] LABS: CALCIUM 10.3 mg/dL (8.3-10.5)
[2024-04-30 12:10] LABS: GLUCOSE 87 mg/dL (65-105); TOTAL PROTEIN 7.2 g/dL (6.2-8.1)
[2024-04-30 12:11] LABS: CARBON DIOXIDE 20 mmol/L (23-31)
[2024-04-30 12:12] LABS: TOTAL BILIRUBIN 0.6 mg/dL (0.2-1.2)
[2024-04-30 12:16] LABS: AST-SGOT 39 U/L (5-34)
[2024-04-30 12:17] LABS: ALT/SGPT 25 U/L (0-55)
[2024-04-30 12:23] LABS: TROPONIN-I < 0.030 ng/mL (0.00-0.033)
[2024-04-30] MEDS ORDERED: Losartan 50 MG TAB PO SCH (12:30)
[2024-04-30 12:34] VITALS: BP 166/94
[2024-04-30] MEDS ORDERED: AMLODIPINE BESYL5 MG PO (12:38)
== END 2024-04-30 12:45 | disposition home or self-care (01) ==
LOC: ED 11:21
PROVIDERS: Nurse Practitioner Family
DX: I10 Essential (primary) hypertension (principal); E66.9 Obesity, unspecified; Z68.31 Body mass index [BMI] 31.0-31.9, adult

== ENCOUNTER → 2024-05-10 | Outpatient (CLI) | payer MEDICARE, BC ==
[~2024-05-10] VITALS: Ht 152.4 cm; Wt 70.3 kg
[~2024-05-10] MED LIST changes: +AMLODIPINE BESYL5 MG PO; +Regadenoson 0.08 MG/ML 5 ML VIAL IV SCH
== END ==
LOC: CARDREHAB 08:18
DX: R06.00 Dyspnea, unspecified (principal)
CPT/HCPCS: A9500; J2785

== ENCOUNTER 2024-05-15 08:53 | Outpatient (RCR) | payer MEDICARE, BC ==
[2024-04-24 09:19] VITALS: BP 197/100
[2024-05-01 09:19] VITALS: BP 162/95
--- NOTE | 2024-05-01 09:46 | NUR ---
PT ARRIVED AMBULATORY FOR OP WOUND CARE TO LEFT POSTERIOR CALF. STATES SHE WAS IN ER YESTERDAY FOR ELEVATED BP. BP IMPROVED TODAY. STATES SHE FEELS BETTER, JUST TIRED TODAY. DEABRIDEMENT AND ADVANCED DRESSING PLACED BY Deandre ESTRADA APRN. SEE PROVIDER NOTE FROM Deandre ESTRADA APRN.
[2024-05-08 09:00] VITALS: BP 172/87
--- NOTE | 2024-05-08 09:46 | NUR ---
PT ARRIVED AMBULATORY FOR OP WOUND CARE TO LEFT POSTERIOR CALF. DRESSING REMOVED. INCREASED DRAINAGE NOTED ON DRESSING. 2% LIDOCAINE GEL APPLIED TO WOUND PRIOR TO SHARP DEBRIDEMENT BY PROVIDER. FOLLOWING DEBRIDEMENT WOUND WAS CLEANED WITH VASHE. PHOTOS AND MEASUREMENTS TAKEN. SEE PROVIDER NOTE BY Deandre ESTRADA APRN. AFFINITY APPLIED TO WOUND BED. SKIN PREPPED AROUND WOUND. ADAPTIC COVERING AFFINITY AND SECURED WITH STERI STRIPS. COVERED WITH TELFA. PT WILL REAPPLY TUBI SOFTWARE CONFIGURATION ANALYST STOCKING WHEN SHE GETS HOME. WILL CONTINUE TO WEAR TUBIGRIP STOCKING DAILY AND REMOVE AT NIGHT. PT MILI PROCEDURE WELL. LEFT FACILITY AMBULATORY .
[~2024-05-15] VITALS: Ht 152.4 cm; Wt 68.2 kg
[~2024-05-15 08:53] MED LIST changes: +Lidocaine 2% Jelly 5 GM TUBE TOP PRN; -Regadenoson 0.08 MG/ML 5 ML VIAL IV SCH
[2024-05-15 09:23] VITALS: BP 153/89
--- NOTE | 2024-05-15 09:36 | NUR ---
UPON REMOVING LLL DRESSING TODAY, NOTED THE AFFINITY CAME OUT WITH THE DRESSING. IT HAD NOT ABSORBED INTO THE WOUND. SHARP DEBRIDEMENT DONE AFTER APPLYING LIDOCAINE GEL. CLEANED WITH VASHE. PHOTOGRAPHED AND MEASURED. SKIN PREP APPLIED AROUND WOUND APPLIED COLLAGEN AND TELFA OVER WOUND. SEE PROVIDER NOTE FROM Deandre CALVERT APRN. NO ADVANCED PRODUCT APPLIED TODAY.
[2024-06-05] MEDS ORDERED: VIBRAMYCIN HYC100 MG PO (09:39)
[2024-06-10] MEDS ORDERED: AMOXIL500 M1 PO (10:28)
== END 2024-05-20 | disposition home or self-care (01) ==
LOC: AMSURD
DX: L97.929 Non-pressure chronic ulcer of unspecified part of left lower leg with unspecified severity (principal)
CPT/HCPCS: Q4159-JZ; Q4196-JZ

== ENCOUNTER → 2024-06-05 | Outpatient (CLI) | payer MEDICARE, BC ==
[~2024-06-05] MED LIST changes: +AMOXIL500 M1 PO; -Lidocaine 2% Jelly 5 GM TUBE TOP PRN; +VIBRAMYCIN HYC100 MG PO
== END ==
LOC: LAB 09:32
DX: Z01.89 Encounter for other specified special examinations (principal)

== ENCOUNTER 2024-06-19 08:50 | Outpatient (RCR) | payer MEDICARE, BC ==
[2024-05-22 09:08] VITALS: BP 145/80
--- NOTE | 2024-05-22 09:39 | NUR ---
PT HERE FOR OP WOUND CARE TO LEFT LOWER LEG. VSS. SEE PROVIDER NOTE FROM Deandre ESTRADA APRN. PT MILI VY WELL. USED LIDOCAINE 2% JELLY TO WOUND PRIOR TO DEBRIDEMENT.
--- NOTE | 2024-05-29 09:15 | NUR ---
PATIENT AMBULATORY TO ROOM 5 FOR WOUND CARE TO LEFT CALF ULCER. MEASUREMENTS AND PICTURES TAKEN. AREA CLEANSED WITH HEBICLENSE AND DEBBRISOFT LOLLI. DEBRIDEMENT AND DRESSING CHANGE PERFORMED BY INDU ESTRADA APRN. SEE PROVIDERS NOTE FOR DETAILS. PATIENT TO HAVE ARTERIAL STUDIES TODAY AT 1PM.
[2024-05-29 09:57] VITALS: BP 167/97
[2024-06-05 09:05] VITALS: BP 150/80
--- NOTE | 2024-06-05 09:06 | NUR ---
PATIENT AMBULATORY TO ROOM 5 FOR WOUND CARE TO LEFT CALF ULCER. MEASUREMENTS AND PHOTOGRAPHS OBTAINED. SURROUNDING SKIN REPORTED TO BE ITCHY BY PATIENT. SURROUNDING SKIN DRY AND FLAKING. INDU ESTRADA APRN EDUCATED PATIENT TO DISCONTINUE UTILIZING SKIN PREP TO SURROUNDING SKIN. LIDOCAINE UTILIZED PRIOR TO DEBRIDEMET. BROWN EXUDATE NOTED TO DRESSING. AREA DEBRIDED WITH 5MM CURETTE, CLEANSED WITH HIBICLENS AND DEBRISOFT LOLLI, WOUND CULTURE OBTAINED AFTER CLEANSING. WOUND DRESSED WITH XEROFORM, AQUACEL EXTRA, AND MEPILEX BORDER FOAM. PATIENT EDUCATED TO CHANGE DRESSING AT HOME EVERY OTHER DAY AND SENT WITH PROPER SUPPLIES. PATIENT SCHEDULED TO RETURN Monday06/07/24. INDU ESTRADA APRN SENT ANTIBIOTIC TO PREFERRED PHARMACY.
[2024-06-07 11:28] VITALS: BP 177/80
--- NOTE | 2024-06-07 11:59 | NUR ---
pt's daughter in law came to appt with her today. wound care to LLL. pt billy well. see provider note from dave pate aprn
[2024-06-12 09:04] VITALS: BP 121/78
[~2024-06-19] VITALS: Ht 152.4 cm; Wt 68.2 kg
[~2024-06-19 08:50] MED LIST changes: +Lidocaine 2% Jelly 5 GM TUBE TOP PRN
[2024-06-19 08:59] VITALS: BP 155/78
== END 2024-06-20 | disposition home or self-care (01) ==
LOC: AMSURD
DX: M80.08XD Age-related osteoporosis with current pathological fracture, vertebra(e), subsequent encounter for fracture with routine healing (principal); L97.929 Non-pressure chronic ulcer of unspecified part of left lower leg with unspecified severity; Z98.890 Other specified postprocedural states
CPT/HCPCS: A6021; Q4196-JZ

== ENCOUNTER → 2024-07-08 | Outpatient (CLI) | payer MEDICARE, BC ==
[~2024-07-08] MED LIST changes: -Lidocaine 2% Jelly 5 GM TUBE TOP PRN
== END ==
LOC: MAMMO 10:56
DX: Z12.31 Encounter for screening mammogram for malignant neoplasm of breast (principal)

== ENCOUNTER → 2024-07-10 | Outpatient (CLI) | payer MEDICARE, BC ==
[~2024-07-10] VITALS: Ht 152.4 cm; Wt 68.2 kg
[2024-07-10 13:43] VITALS: BP 149/77
--- NOTE | 2024-07-10 13:44 | NUR ---
PT ARRIVED AMBULATORY FOR WOUND CARE TO LEFT CALF. WOUND VAC WAS REMOVED EARLIER THIS MORNING AT DERMATOLOY OFFICE WHEN PT WENT FOR MOHS PROCEDURE ON SPOT DISTAL TO WOUND ON LEFT CALF. SUTURES FROM MOHS PROCEDURE ARE INTACT. NO BLEEDING FROM SITE. ADVANCED WOUND PRODUCT, AFFINITY, WAS APPLIED BY GAIL TODAY AND WOUND VAC APPLIED OVER AFFINITY. SEE PROVIDER NOTE FROM Deandre ESTRADA APRN.
--- NOTE | 2024-07-14 10:45 | NUR ---
INDU ESTRADA, LENS SHAPER GRINDER IN WITH PATIENT AT THIS TIME. PATIENT REPORTING WOUND VAC CONTIUOUSLY ALERTING. ON ASSESSMENT, VACUUM SUCTION NOT WORKING PROPERLY. WOUND VAC REMOVED, AREA SURROUNDING WOUND BED CLEANSED WITH SURGICAL SCRUB AND DRIED. NEW WOUND VAC PLACED AND WORKING PROPERLY. MALODOR NOTED WITH DRESSING CHANGE, INDU ESTRADA APRN TO SEND RX FOR ANTIBIOTIC.
== END ==
LOC: WOUND 12:55
DX: L97.929 Non-pressure chronic ulcer of unspecified part of left lower leg with unspecified severity (principal)
CPT/HCPCS: Q4159-JZ

== ENCOUNTER → 2024-07-17 | Outpatient (CLI) | payer MEDICARE, BC ==
[~2024-07-17] VITALS: Ht 152.4 cm; Wt 68.2 kg
[2024-07-17 10:07] VITALS: BP 168/84
== END ==
LOC: WOUND 09:04 → LAB 09:04
DX: L97.929 Non-pressure chronic ulcer of unspecified part of left lower leg with unspecified severity (principal)
CPT/HCPCS: Q4159-JZ

== ENCOUNTER → 2024-07-24 | Outpatient (CLI) | payer MEDICARE, BC ==
[~2024-07-24] VITALS: Ht 152.4 cm; Wt 68.2 kg
[2024-07-24 09:12] VITALS: BP 158/75
--- NOTE | 2024-07-24 09:50 | NUR ---
PT HERE FOR WOUND CARE TO L CALF WOUND. BIOPSY REPORT FROM LAST WEEK NOT RESULTED YET. WOUND SHOWS NO IMPROVEMENT FROM LAST WEEK. DID NOT APPLY ANY ADVANCED PRODUCT TODAY. CLEANED WOUND WITH VASHE FOLLOWING SHARP DEBRIDEMENT BY Deandre ESTRADA APRN. APPLIED IODOSORB TO WOUND BED, COVERED WITH OPTILOCK AND SOFT ROLL SECURED WITH PAPER TAPE. ALSO NOTED TO HAVE A DRAINING, RED RAISED AREA NEXT TO SUTURE LINE FROM MOHS PROCEDURE DONE BY TERRITORY SALES EXECUTIVE. DRAINAGE IS BLOODY AND PURULENT. NO ODOR NOTED. PT IS ON HER LAST DAY OF ANTIBIOTICS. TERRITORY SALES EXECUTIVE HAS BEEN NOTIFIED BY FAMILY AND PT HAS AN APPT WITH HIM IN ONE WEEK. WE CLEANED THIS AREA WITH VASHE WELL, AND APPLIED OPTILOCK AND SOFT ROLL OVER IT ALSO. PT'S DTR IN LAW WHO IS AN BODY TECHNICIAN/PAINTER WILL CHANGE DRSG ON MON AND MON. PT WILL RETURN TO WOUND CARE ON MON NEXT WEEK.
== END ==
LOC: WOUND 09:05
DX: L97.929 Non-pressure chronic ulcer of unspecified part of left lower leg with unspecified severity (principal)
CPT/HCPCS: 19064; A6261

== ENCOUNTER → 2024-07-25 | Outpatient (CLI) | payer MEDICARE, BC | LOC: LAB 10:33 | DX: I83.002 Varicose veins of unspecified lower extremity with ulcer of calf (principal); T14.8XXD Other injury of unspecified body region, subsequent encounter; L97.909 Non-pressure chronic ulcer of unspecified part of unspecified lower leg with unspecified severity; L97.202 Non-pressure chronic ulcer of unspecified calf with fat layer exposed ==

== ENCOUNTER → 2024-07-31 | Outpatient (CLI) | payer MEDICARE, BC ==
[~2024-07-31] VITALS: Ht 152.4 cm; Wt 68.2 kg
[~2024-07-31] MED LIST changes: +Lidocaine 2% Jelly 5 GM TUBE TOP ONE
[2024-07-31 11:40] VITALS: BP 175/90
--- NOTE | 2024-07-31 11:41 | NUR ---
SEE PROVIDER NOTE FROM Deandre ESTRADA APRN
== END ==
LOC: WOUND 10:54
DX: L97.929 Non-pressure chronic ulcer of unspecified part of left lower leg with unspecified severity (principal)
CPT/HCPCS: 19064; 19899; A6261

== ENCOUNTER → 2024-08-07 | Outpatient (CLI) | payer MEDICARE, BC ==
[~2024-08-07] VITALS: Ht 152.4 cm; Wt 68.2 kg
[~2024-08-07] MED LIST changes: -Lidocaine 2% Jelly 5 GM TUBE TOP ONE
[2024-08-07 12:01] VITALS: BP 121/73
--- NOTE | 2024-08-07 12:02 | NUR ---
SEE PROVIDER NOTE FROM Deandre ESTRADA APRN
== END ==
LOC: WOUND 11:05
DX: L97.929 Non-pressure chronic ulcer of unspecified part of left lower leg with unspecified severity (principal)
CPT/HCPCS: 18897; 19064; 19899; A6261

== ENCOUNTER → 2024-08-16 | Outpatient (CLI) | payer MEDICARE, BC ==
[~2024-08-16] VITALS: Ht 152.4 cm; Wt 68.2 kg
[2024-08-16 10:27] VITALS: BP 120/81
--- NOTE | 2024-08-16 10:28 | NUR ---
SEE PROVIDER NOTE FROM Deandre ESTRADA APRN
== END ==
LOC: WOUND 09:55
DX: L97.929 Non-pressure chronic ulcer of unspecified part of left lower leg with unspecified severity (principal); L90.5 Scar conditions and fibrosis of skin
CPT/HCPCS: 18897; 19064; 19899; A6261

== ENCOUNTER → 2024-08-23 | Outpatient (CLI) | payer MEDICARE, BC ==
[~2024-08-23] VITALS: Ht 152.4 cm; Wt 68.2 kg
[2024-08-23 13:45] VITALS: BP 127/78
--- NOTE | 2024-08-23 13:46 | NUR ---
SEE PROVIDER NOTE FROM Deandre ESTRADA APRN
== END ==
LOC: WOUND 13:09
DX: L97.929 Non-pressure chronic ulcer of unspecified part of left lower leg with unspecified severity (principal)
CPT/HCPCS: 18897

== ENCOUNTER → 2024-08-29 | Outpatient (CLI) | payer MEDICARE, BC ==
[~2024-08-29] VITALS: Ht 152.4 cm; Wt 68.2 kg
[2024-08-29 09:08] VITALS: BP 152/90
== END ==
LOC: WOUND 09:00
DX: L97.929 Non-pressure chronic ulcer of unspecified part of left lower leg with unspecified severity (principal)
CPT/HCPCS: 18897; 19899

== ENCOUNTER → 2024-09-04 | Outpatient (CLI) | payer MEDICARE, BC ==
[~2024-09-04] VITALS: Ht 152.4 cm; Wt 68.2 kg
[2024-09-04 11:42] VITALS: BP 171/88
--- NOTE | 2024-09-04 12:11 | NUR ---
PATIENT HERE FOR WOUND CARE TO CHRONIC ULCER TO LLE. COPIOUS AMOUNT OF YELLOW DRAINAGE NOTED TO TUBIGRIP AND DRESSING. PATIENT REPORTS DRESSING WAS CHANGED LAST NIGHT AND THAT "AT TIMES IT DRAINS SO MUCH IT GETS THROUGH MY CLOTHES". DRESSING REMOVED. BLISTERS, REDNESS, AND DRAINAGE NOTED TO PERIWOUND AND WOUND BED. AREA DEBRIDED WITH 5MM CURETTE BY Rosario ESTRADA APRN AND CLEANSED WITH HIBICLENSE AND DEBRISOFT LOLLI. CULTURE OBTAINED TO FLUID OF PERIWOUND PER Rosario ESTRADA APRN. MEASUREMENTS AND PHOTOGRAPHS TAKEN. BACRITRACIN APPLIED TO PERIWOUND, COVERED WITH AQUACEL AG, SOFT ROLL, AND MEDIPORE TAPE. PHONE NUMBER TO DR. MORA PLASTIC SURGEON OFFICE GIVEN TO PATIENT. NEW APPT SCHEDULED FOR Monday09/10/24. INSTRUCTIONS FOR DAILY DRESSING CHANGES AND MORE IF DRESSING SATURATED. PATIENT VERBALIZED UNDERSTANDING, ALL SUPPLIED PROVIDED TO PATIENT.
--- NOTE | 2024-09-04 15:57 | NUR ---
CALLED DR. MORA OFFICE AND LEFT VOICEMAIL TO CONTACT PATIENT WITH APPT INFORMATION PER PATIENT REQUEST.
== END ==
LOC: WOUND 11:33 → LAB 11:33
DX: L97.929 Non-pressure chronic ulcer of unspecified part of left lower leg with unspecified severity (principal)
CPT/HCPCS: A6197

== ENCOUNTER → 2024-09-10 | Outpatient (CLI) | payer MEDICARE, BC ==
[~2024-09-10] VITALS: Ht 152.4 cm; Wt 68.2 kg
[2024-09-10 11:27] VITALS: BP 182/93
--- NOTE | 2024-09-10 11:30 | NUR ---
PT HERE FOR WOUND CARE TO LEFT LOWER LEG. MOD AMT YELLOW DRAINAGE ON DRESSING. PERIWOUND IS MUCH LESS IRRITATED THAN LAST WEEK. DTR IN LAW DOING DRESSING CHANGE DAILY THIS PAST WEEK. DEBRIDEMENT DONE WITH 3MM CURETTE BY Deandre ESTRADA APRN. WOUND CLEANED WITH VASHE. MEASUREMENTS AND PICS TAKEN TODAY. SEE PROVIDER NOTE. PT STATES THEY HAVE BEEN USING BACITRACIN OINTMENT ON PERIWOUND. PUT AQUACEL AG INSIDE WOUND BED. AND COVERED WITH MEPITEL. CHANGE DRESSING EVERY 48 HOURS. PT HAS APPT ON SUNDAY 09/17 WITH PLASTIC SURGEON. WILL FOLLOW UP WITH PATIENT AFTER HER APPT, TO SEE WHEN WE NEED ANOTHER APPT. FOR WOUND CARE. DOUBLE LAYER TUBIGRIP STOCKING APPLIED TO LLL TO HELP WITH EDEMA.
== END ==
LOC: WOUND 11:17
DX: L97.929 Non-pressure chronic ulcer of unspecified part of left lower leg with unspecified severity (principal)
CPT/HCPCS: 18893; A6197

== ENCOUNTER → 2024-09-11 | Outpatient (CLI) | payer MEDICARE, BC | LOC: MAMMO 10:58 | DX: Z13.820 Encounter for screening for osteoporosis (principal) ==

== ENCOUNTER → 2024-09-18 | Outpatient (CLI) | payer MEDICARE, BC ==
[~2024-09-18] VITALS: Ht 152.4 cm; Wt 68.2 kg
[2024-09-18 11:42] VITALS: BP 134/77
--- NOTE | 2024-09-18 11:43 | NUR ---
PT HERE FOR WOUND CARE TO LEFT CALF WOUND. TODAY IS A NURSIG VISIT ONLY. WOUND WAS CLEANSED WITH VASHE AND A DEBRISOFT LOLLY FOR GENTLE DEBRIDEMENT. MEASUREMENTS AND PICTURES TAKEN TODAY. WOUND IS 90% SLOUGH AFTER CLEANING. ERRYTHEMA AROUD OUTER EDGES OF WOUND HAS RESOLVED. MEASUREMENTS : 2.0CM LONG X 1.6CM WIDE AND 0.4CM DEEP. APPLIED AQUACEL AG TO WOUND BED AND COVERED WITH MEPITEL ONE. PT SAW PLASTIC SURGEON ON MONDAY AND BROUGHT HIS REPORT. COPY PLACED IN CHART. PT STATES SHE DOES NOT PLAN TO PROCEED WITH ANY SURGICAL INTERVENTION FOR THIS WOUND SURGEON STATED IT MAY REQUIRE MAKING THE WOUND MUCH LARGER AND COULD REQUIRE REPEAT SURGERIES. WITH HER INABILITY TO HEAL QUICKLY, SHE NOR HER DAUGHTER IN LAW FEEL LIKE THIS IS A GOOD OPTION. SHE WILL CONTINUE WITH LOCAL WOUND CARE AT THIS TIME. FAMILY WILL CHANGE HER DRESSING EVERY OTHER DAY AT HOME AND SHE WILL RETURN IN 1 WEEK.
== END ==
LOC: WOUND 10:55
DX: L97.929 Non-pressure chronic ulcer of unspecified part of left lower leg with unspecified severity (principal)
CPT/HCPCS: 18893; 18897; A6197

== ENCOUNTER → 2024-09-25 | Outpatient (CLI) | payer MEDICARE, BC ==
[~2024-09-25] VITALS: Ht 152.4 cm; Wt 68.2 kg
[2024-09-25 11:15] VITALS: BP 165/78
--- NOTE | 2024-09-25 11:18 | NUR ---
PT HERE FOR WOUND CARE TO WOUND ON LEFT CALF. REMOVED DRESSING (AQUACEL AND MEPITEL) SMALL AMT YELLOW SEROUS DRAINAGE NOTED. Deandre ESTRADA APRN IN TO SEE PT. DISCUSSED PT'S VISIT WITH PLASTIC SURGEON. PT HAS DECIDED NOT TO PROCEED WITH SURGICAL INTERVENTION. WILL CONTINUE WITH CONSERVATIVE WOUND CARE. SHARP DEBRIDEMENT DONE BY Deandre ESTRADA APRN. CLEANED WITH VASHE. APPLIED AQUACEL AG INTO WOUND BED AND COVERED WITH MEPITEL AND TUBI LINE SERVER. PT MILI WELL. WILL HAVE DAUGHTERIN LAW CHANGE DRESSING EVERY 2-3 DAYS AND RETURN IN 2 WEEKS. SUPPLIES SENT WITH PATIENT
== END ==
LOC: WOUND 11:00
DX: L97.929 Non-pressure chronic ulcer of unspecified part of left lower leg with unspecified severity (principal)
CPT/HCPCS: 18893; A6197

== ENCOUNTER → 2024-10-07 | Outpatient (CLI) | payer MEDICARE, BC ==
[~2024-10-07] VITALS: Ht 152.4 cm; Wt 68.2 kg
[~2024-10-07] MED LIST changes: +Denosumab 60 MG/ML SYRINGE SQ ONE
[2024-10-07 09:58] VITALS: BP 140/98
== END ==
LOC: AMSURD 09:50
DX: M80.08XA Age-related osteoporosis with current pathological fracture, vertebra(e), initial encounter for fracture (principal)
CPT/HCPCS: J0897